=== PATIENT | male | born 1945 | race Caucasian/White ===

== ENCOUNTER 2017-10-13 00:12 | Observation (INO) | payer OTHER ==
[~2017-10-13] VITALS: Ht 182.9 cm; Wt 115.7 kg
[~2017-10-13 00:12] MED LIST: ASPI81CH PO; ATEN25 PO; CLOP75 PO; LEVSOD100 PO; LISHYD2012 PO; MELO7.5 PO; METF500 PO; Norco 5-325 Ta1 EACH PO; PHENA100 PO; SULTRIDS PO
[2017-10-13 00:35] LABS: BASOPHILS ABSOLUTE AUTO 0.04 K/mm3 (0.00-0.23); BASOPHILS PERCENT AUTO 1 % (0-2); EOSINOPHILS ABSOLUTE AUTO 0.11 K/mm3 (0.00-0.68); EOSINOPHILS PERCENT AUTO 2 % (0-6); Hematocrit 45.2 % (37.0-53.0); Hemoglobin 14.9 g/dL (13.5-17.5); IMMATURE GRAN ABSOLUTE AUTO 0.04 K/mm3 (0.00-0.10); IMMATURE GRAN PERCENT AUTO 1 % (0-1); LYMPHOCYTES ABSOLUTE AUTO 1.79 K/mm3 (0.84-5.20); LYMPHOCYTES PERCENT AUTO 30 % (21-46); MONOCYTES ABSOLUTE AUTO 0.75 K/mm3 (0.16-1.47); MONOCYTES PERCENT AUTO 12 % (4-13); Mean Corpuscular HGB 28.5 pg (26.0-34.0); Mean Corpuscular Volume 87 fL (80-100); Mean Platelet Volume 9.3 fL (9.1-12.4); NEUTROPHILS ABSOLUTE AUTO 3.33 K/mm3 (1.96-9.15); NEUTROPHILS PERCENT AUTO 55 % (41-73); Platelet Count 183 K/mm3 (150-400); RDW Standard Deviation 44.2 fL (35.1-46.3); Red Blood Cell Count 5.22 M/mm3 (4.30-5.90); White Blood Cell Count 6.06 K/mm3 (4.00-11.30)
[2017-10-13 00:59] LABS: Alanine Aminotransfer (ALT/SGP 34 U/L (12-78); Albumin, Blood 3.7 g/dL (3.4-5.0); Albumin/Globulin Ratio 1.1 (0.8-1.8); Alk Phos 91 U/L (50-136); Anion Gap 8 mmol/L (6-16); Aspartate Aminotrans (AST/SGOT 17 U/L (12-37); Bilirubin, Total 0.4 mg/dL (0.1-1.0); Blood Urea Nitrogen 30 mg/dL (8-24); Bun/Creatinine Ratio 22.9 (12.0-20.0); CO2, Blood 23 mmol/L (21-32); Calcium, Blood 8.7 mg/dL (8.5-10.1); Chloride, Blood 106 mmol/L (98-108); Creatinine, Blood 1.31 mg/dL (0.60-1.20); Globulin, Blood 3.5 g/dL (2.2-4.0); Glomerular Filtration Rate 57 (60-); Glucose, Blood 139 mg/dL (70-99); Potassium, Blood 4.3 mmol/L (3.5-5.5); Sodium, Blood 137 mmol/L (136-145); Total Protein, Blood 7.2 g/dL (6.4-8.2); Troponin I <0.015 ng/mL (0.000-0.040)
[2017-10-13] MEDS ORDERED: Isosorbide Mono30 MG PO (03:01)
[2017-10-13 03:18] LABS: CPK Creatine Kinase 152 U/L (39-308); Troponin I <0.015 ng/mL (0.000-0.040)
[2017-10-13] MEDS ORDERED: PRAVASTATIN SOD10 MG PO (03:21)
[2017-10-13] MEDS ORDERED: CLOP75 PO (03:22)
[2017-10-13] MEDS ORDERED: Prinivil10 MG PO (03:23)
[2017-10-13] MEDS ORDERED: NITR.4SL SL (03:24)
== END 2017-10-15 00:18 | disposition home or self-care (01) ==
LOC: ER 00:12 → ERHOLD 00:13
PROVIDERS: Emergency Medicine; Internal Medicine
DX: R07.9 Chest pain, unspecified (principal); I25.10 Atherosclerotic heart disease of native coronary artery without angina pectoris; I12.9 Hypertensive chronic kidney disease with stage 1 through stage 4 chronic kidney disease, or unspecified chronic kidney disease; E11.22 Type 2 diabetes mellitus with diabetic chronic kidney disease; N18.2 Chronic kidney disease, stage 2 (mild); E03.9 Hypothyroidism, unspecified; E78.5 Hyperlipidemia, unspecified; J45.909 Unspecified asthma, uncomplicated; M19.90 Unspecified osteoarthritis, unspecified site; E66.9 Obesity, unspecified; Z88.8 Allergy status to other drugs, medicaments and biological substances; Z79.82 Long term (current) use of aspirin; Z79.84 Long term (current) use of oral hypoglycemic drugs; Z79.1 Long term (current) use of non-steroidal anti-inflammatories (NSAID); Z79.899 Other long term (current) drug therapy; Z95.5 Presence of coronary angioplasty implant and graft; Z98.890 Other specified postprocedural states; Z87.891 Personal history of nicotine dependence; Z68.34 Body mass index [BMI] 34.0-34.9, adult
CPT/HCPCS: 36415; 71046; 80053; 82550; 84484; 85025; 85730; 93005; 93010; 96374; 99285; G0378; J3010

== ENCOUNTER → 2017-12-26 | Outpatient (CLI) | payer OTHER ==
[~2017-12-26] MED LIST changes: +Isosorbide Mono30 MG PO; +NITR.4SL SL; +PRAVASTATIN SOD10 MG PO; +Prinivil10 MG PO
== END | disposition home or self-care (01) ==
LOC: LAB SHORT 17:01 → LAB EV 17:01
DX: N39.0 Urinary tract infection, site not specified (principal)
CPT/HCPCS: 87086

== ENCOUNTER → 2018-01-01 | Outpatient (CLI) | payer OTHER | END | disposition home or self-care (01) | LOC: LAB SHORT 10:14 → LAB EV 10:14 | DX: N39.0 Urinary tract infection, site not specified (principal) | CPT/HCPCS: 87086 ==

== ENCOUNTER 2019-05-20 06:11 | Day surgery (SDC) | payer OTHER ==
[~2019-05-20] VITALS: Ht 182.9 cm; Wt 125.9 kg
[~2019-05-20 06:11] MED LIST changes: +AMLO10 PO; +CARV6.25 PO; +Flomax0.4 MG PO
--- NOTE | 2019-05-20 06:49 | NUR ---
History, Chart, Medications and Allergies reviewed before start of procedure. Patient confirms NPO status and agrees with scheduled surgery. Patient States Post-Procedure ride home has been arranged.
--- NOTE | 2019-05-20 11:21 | NUR ---
1050- Discharge instructions reviewed with patient. Patient verbalizes understanding. Copy given to patient to take home. ELVIRA WRAP C/D/I TO RIGHT KNEE. PT ABLE TO MOVE ANKLES FLEX AND EXTEND INSTRUCTED. VSS. AT BEDSIDE. PT ABLE TO TAKE CRACKERS AND WATER AND COFFEE WITHOUT PROBLEMS, PAIN STILL /10 BUT PT READY FOR DC HOME. ASSISTED DRESSED. Discharged via wheelchair to private car for ride home.
== END 2019-05-20 10:55 | disposition home or self-care (01) ==
LOC: ORSCMMR 06:11 → ORD 07:30 → ORSCMMR 10:55
PROVIDERS: Orthopaedic Surgery
PROC: 0SBC4ZZ Excision of Right Knee Joint, Percutaneous Endoscopic Approach (ICD-10-PCS; principal; 2019-05-20 07:30)
DX: S83.281A Other tear of lateral meniscus, current injury, right knee, initial encounter (principal); M17.11 Unilateral primary osteoarthritis, right knee; I10 Essential (primary) hypertension; I25.10 Atherosclerotic heart disease of native coronary artery without angina pectoris; G47.33 Obstructive sleep apnea (adult) (pediatric); E03.9 Hypothyroidism, unspecified; J45.909 Unspecified asthma, uncomplicated; Z79.899 Other long term (current) drug therapy; Z79.82 Long term (current) use of aspirin
CPT/HCPCS: 82947; J0171; J0690; J1100; J2405; J2704; J3010; J7120

== ENCOUNTER 2020-10-05 08:24 | Day surgery (SDC) | payer OTHER ==
[~2020-10-05] VITALS: Ht 180.3 cm; Wt 127.1 kg
[~2020-10-05 08:24] MED LIST changes: +ALBU90OI INH
--- NOTE | 2020-10-05 09:38 | NUR ---
Ambulatory in Day Surgery c [facility]. History, Chart, Medications and Allergies reviewed before start of procedure. Lungs clear T/O to Auscultation. Patient confirms NPO status and agrees with scheduled surgery. DENTURES AND HEARING AIDES REMOVED, PLACED IN BELONGINGS BAG. Surgical site prepped with 2% Chlorhexidine cloth wipe.
--- NOTE | 2020-10-05 12:19 | NUR ---
1200- BLADDER SCAN SHOWS 335ML IN BLADDER. PT STATES " I AINT GETTIN NO GODDAM CATHETER".
--- NOTE | 2020-10-05 19:11 | NUR ---
SHIFT SUMMARY PT IS POD#0 FROM R TKA WITH DR. SAGASTUME. PAIN MANAGED WITH PO PAIN MEDICATION. PAIN MANAGED, PT VOIDED, PO TOLERATED AND PAIN MANAGED POST OP. VSS. WILL MONITOR UNTIL REPORT TO ONCOMING RN.
[2020-10-06 04:38] LABS: BASOPHILS ABSOLUTE AUTO 0.02 K/mm3 (0.00-0.23); BASOPHILS PERCENT AUTO 0 % (0-2); EOSINOPHILS PERCENT AUTO 0 % (0-6); Hematocrit 46.9 % (37.0-53.0); IMMATURE GRAN ABSOLUTE AUTO 0.03 K/mm3 (0.00-0.10); IMMATURE GRAN PERCENT AUTO 0 % (0-1); LYMPHOCYTES ABSOLUTE AUTO 1.15 K/mm3 (0.84-5.20); LYMPHOCYTES PERCENT AUTO 13 % (21-46); MONOCYTES ABSOLUTE AUTO 0.52 K/mm3 (0.16-1.47); MONOCYTES PERCENT AUTO 6 % (4-13); Mean Corpuscular HGB 27.6 pg (26.0-34.0); Mean Corpuscular Volume 86 fL (80-100); Mean Platelet Volume 9.8 fL (9.1-12.4); NEUTROPHILS ABSOLUTE AUTO 7.09 K/mm3 (1.96-9.15); NEUTROPHILS PERCENT AUTO 81 % (41-73); Platelet Count 155 K/mm3 (150-400); RDW Coefficient Variation 13.8 % (11.7-14.2); Red Blood Cell Count 5.43 M/mm3 (4.30-5.90); White Blood Cell Count 8.81 K/mm3 (4.00-11.30)
[2020-10-06 04:57] LABS: Anion Gap 5 mmol/L (6-16); Blood Urea Nitrogen 22 mg/dL (8-24); Bun/Creatinine Ratio 21.4 (12.0-20.0); CO2, Blood 25 mmol/L (21-32); Calcium, Blood 8.8 mg/dL (8.5-10.1); Chloride, Blood 106 mmol/L (98-108); Creatinine, Blood 1.03 mg/dL (0.60-1.20); Glomerular Filtration Rate >60 (60-); Glucose, Blood 158 mg/dL (70-99); Potassium, Blood 4.9 mmol/L (3.5-5.5); Sodium, Blood 136 mmol/L (136-145)
--- NOTE | 2020-10-06 06:25 | NUR ---
POD 1 S/P R TKA. PT BP ELEVATED THIS AM, PT DENIED CP/PRESSURE, OTHER VSS. DRESSING CDI, POLAR PACK IN PLACE. PAIN MGD PER EMAR, PT REP PAIN GREG W/PRN MEDS, BUT DOES INCREASE W/MVMT. PT DENIED N/T, PULSES AND CAP REFILL WNL. PT UP OOB W/FWW+SBA, GREG AMB WELL. PLAN FOR TO COME IN THIS AM FOR PT.
--- NOTE | 2020-10-06 08:25 | NUR ---
UPDATE D/C MEDS SPOKE WITH CECILIA WESLEY. BABY ASPIRIN TO BE CONTINUED DAILY UPON DISCHARGE
--- NOTE | 2020-10-06 12:05 | NUR ---
10/06/20 1205 Susana Mustafa VERIFICATIONS: EDIT CHART.
--- NOTE | 2020-10-06 13:46 | NUR ---
DISCHARGE SUMMARY PT A&OX4, VSS, LEFT VIA WC WITH PROFESSIONAL WRESTLER, TO GO HOME WITH PERSONAL POSSESSIONS INCLUDING DC PACKET AND 1 NARC SCRIPT. DC INSTRUCTIONS PROVIDED. PT REP UNDERSTANDING THOSE INSTRUCTIONS INCLUDING DRESSING CHANGES, OK TO SHOWER, NO TUB/JACUZZI, SHORT FREQUENT AMBULATION WITH REST PERIODS WITH BLE ELEVATED, WHEN TO CALL THE DR, FU WITH DR AND PHYSICAL THERAPY. IV DC'D.
== END 2020-10-06 12:30 | disposition home or self-care (01) ==
LOC: ORSCMMR 08:24 → ORD 10:30 → SURS 12:46 → ORSCMMR 10-06 12:30
PROVIDERS: Orthopaedic Surgery
PROC: 8E0Y0CZ Robotic Assisted Procedure of Lower Extremity, Open Approach (ICD-10-PCS; principal; 2020-10-05 10:30)
PROC: 0SRC0JA Replacement of Right Knee Joint with Synthetic Substitute, Uncemented, Open Approach (ICD-10-PCS; principal; 2020-10-05 10:30)
DX: J45.909 Unspecified asthma, uncomplicated (principal); E11.9 Type 2 diabetes mellitus without complications; E78.5 Hyperlipidemia, unspecified; I10 Essential (primary) hypertension; G47.33 Obstructive sleep apnea (adult) (pediatric); I25.10 Atherosclerotic heart disease of native coronary artery without angina pectoris; E07.9 Disorder of thyroid, unspecified; Z87.891 Personal history of nicotine dependence; Z79.82 Long term (current) use of aspirin; Z79.899 Other long term (current) drug therapy
CPT/HCPCS: 27447; S2900; 36415; 73560-RT; 80048; 85025; 88300; 97110; 97116; 97162; A9270; C1776; J0171; J0690; J0735; J1100; J1885; J2250; J2405; J2704; J2795; J3010; J7120

== ENCOUNTER 2021-02-12 10:24 | Emergency (ER) | payer OTHER ==
[~2021-02-12] VITALS: Ht 182.9 cm; Wt 136.1 kg
[2021-02-12] MEDS ORDERED: HYDR1TAB94 PO (11:29)
== END 2021-02-12 11:52 | disposition home or self-care (01) ==
LOC: ER 10:24
DX: M23.92 Unspecified internal derangement of left knee (principal); I10 Essential (primary) hypertension; E03.9 Hypothyroidism, unspecified; I25.10 Atherosclerotic heart disease of native coronary artery without angina pectoris; Z79.02 Long term (current) use of antithrombotics/antiplatelets; Z79.899 Other long term (current) drug therapy; Z87.891 Personal history of nicotine dependence; Z88.8 Allergy status to other drugs, medicaments and biological substances; X50.1XXA Overexertion from prolonged static or awkward postures, initial encounter
CPT/HCPCS: 73562-LT; 99283-25

== ENCOUNTER 2022-05-15 05:38 | Day surgery (SDC) | payer OTHER ==
[~2022-05-15] VITALS: Ht 180.3 cm; Wt 122.0 kg
[~2022-05-15 05:38] MED LIST changes: +AMLO5 PO; +HYDR1TAB94 PO; +LISI5 PO
--- NOTE | 2022-05-15 12:34 | NUR ---
PT AND VERBALIZED UNDERSTANDING OF WRITTEN AND VERBAL D/C INST. IV REMOVED. PT TAKEN OUT OF THE [facility]RT CENTER VIA W/C.
== END 2022-05-15 12:15 | disposition home or self-care (01) ==
LOC: MHTC 05:38
DX: I44.2 Atrioventricular block, complete (principal); I10 Essential (primary) hypertension; E11.9 Type 2 diabetes mellitus without complications; J45.909 Unspecified asthma, uncomplicated; E78.5 Hyperlipidemia, unspecified; I25.10 Atherosclerotic heart disease of native coronary artery without angina pectoris; Z95.5 Presence of coronary angioplasty implant and graft; Z79.82 Long term (current) use of aspirin; Z79.02 Long term (current) use of antithrombotics/antiplatelets; Z79.899 Other long term (current) drug therapy
CPT/HCPCS: 33208; 71046; 99152; 99153; C1785; C1894; C1898; J0690; J1644; J2250; J3010; J7030; J7040